=== PATIENT | male | born 2005 | race Hispanic/Latino ===

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

== ENCOUNTER 2024-02-05 13:39 | Emergency (ER) | payer OTHER, SELFPAY ==
--- NOTE | ~2024-02-05 | XR_ITS ---
XR elbow LT min 3V Ordering provider: David Crenshaw APRN History: . PAIN AND SWELLING TO POSTERIOR LEFT ELBOW. INJURY . Comparison: None. FINDINGS: BONES: Fracture of the olecranon process of the ulna with displacement. The gap between fragments is 1.4 cm. JOINT SPACES: Elevation of the anterior and posterior fat pad suggestive of blood. SOFT TISSUES: Soft tissue swelling seen posteriorly. IMPRESSION: Displaced fracture of the olecranon process of the ulna. Reviewed, dictated and finalized at location A.
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
[2024-02-05 13:55] VITALS: BP 121/84; PULSE 102; RESP 16; TEMP 36.8; O2SAT 99
== END 2024-02-05 15:38 | disposition home or self-care (01) ==
PROVIDERS: Emergency Provider Nurse Practitioner Family
DX: S52.022A Displaced fracture of olecranon process without intraarticular extension of left ulna, initial encounter for closed fracture (principal); V03.12XA Pedestrian on skateboard injured in collision with car, pick-up truck or van in traffic accident, initial encounter; K21.9 Gastro-esophageal reflux disease without esophagitis; F12.90 Cannabis use, unspecified, uncomplicated
CPT/HCPCS: 29105; 73080; 99213; 99214; A4565; G0463